=== PATIENT | male | born 1975 | race Hispanic/Latino ===

== ENCOUNTER 2018-09-18 08:13 | Emergency (ER) | payer OTHER ==
[2018-09-18 08:38] VITALS: BP 127/87
[2018-09-18] MEDS ORDERED: XYLOCAINE 1% MPF 5 mL INFILTRATI ONE (09:48)
--- NOTE | 2018-09-18 09:51 | Emergency Department Report ---
HPI - General Chief Complaint: Extremity Problem,Nontraumatic Time Seen by Provider: 09/18/18 09:20 - HPI HPI: 42 yo C M presents to the ED with the complaint of a painful, swollen lesion to the right upper thigh / buttock for the past 2 days. He thinks he may have been bit or stung by something but unsure what. He has used some type of salve without much relief. Otherwise denies pmhx. No fever. No PCP. ED Past Medical Hx - Social History Smoking Status: Former Smoker Substance Use Type: None - Medications Home Medications: Home Medications Medication Instructions Recorded Confirmed Last Taken Type Sulfamethoxazole/Trimethoprim 1 each PO BID #14 tablet 09/18/18 Unknown Rx [Bactrim DS TAB] ED Review of Systems ROS: Stated complaint: R THIGH PAIN/SWOLLEN Other details as noted in HPI Comment: All other systems reviewed and negative Constitutional: denies: chills, fever Musculoskeletal: myalgia. denies: arthralgia Skin: lesions. denies: pruritus Physical Exam - Physical Exam Vital Signs: Vital Signs 09/18/18 08:36 Temperature 98.5 F Pulse Rate 103 H Respiratory 16 Rate Blood Pressure 127/87 Physical Exam: GENERAL: The patient is well-developed well-nourished. HENT: Normocephalic. Atraumatic. Patient has moist mucous membranes. EYES: Extraocular motions are intact. NECK: Supple. Trachea is midline. ABDOMEN: There is no abdominal distention. SKIN: There is a moderate sized fluctuant abscess to the right proximal posterior thigh, just under the buttock. It is about the size of a golf ball. No current bleeding, weeping or drainage. NEURO: The patient is awake, alert, and oriented. The patient is cooperative. The patient has no focal neurologic deficits. The patient has normal speech. MUSCULOSKELETAL: Tenderness to palpation to the right posterior proximal thigh with the patient has an abscess. There is no limitation range of motion. ED Course Vital Signs 09/18/18 08:36 Temperature 98.5 F Pulse Rate 103 H Respiratory 16 Rate Blood Pressure 127/87 - I & D Right Posterior Proximal Thigh Type of Procedure: Simple Site: right posterior proximal thigh, just below the buttock. Blade Size: 11 I & D Procedure: betadine prep, sterile drapes applied, sterile dressing applied, gauze wick placed Progress: The area was cleaned with a Betadine solution. About 3 mL of 1% lidocaine without epinephrine was used to attempt local anesthesia. After this, a 1 cm incision was made with an 11 blade scalpel. Forceps were used to break up loculations. There was a return/removal of about 5 mL of purulent discharge. The area was then packed with iodoform gauze and everything was cleaned and covered with sterile gauze. No obvious complications from this procedure. ED Medical Decision Making - Medical Decision Making Patient presents with a golf ball sized abscess to the right proximal, posterior thigh, just below the buttock. An incision and drainage was performed as per the procedure section. The area was packed with iodoform gauze. Vital signs stable. Afebrile. He will follow up in 2 days for removal of the gauze. He has been given a prescription for some antibiotics. He'll return to the ER with any worsening of his symptoms or any acute distress. - Differential Diagnosis abscess, cyst, cellulitis, dermatitis Critical Care Time: No Critical care attestation.: If time is entered above; I have spent that time in minutes in the direct care of this critically ill patient, excluding procedure time. ED Disposition Clinical Impression: Abscess of right leg Disposition: DC-01 TO HOME OR SELFCARE Is pt being admited?: No Condition: Stable Instructions: Abscess Incision and Drainage (ED), Abscess (ED) Additional Instructions: Please return to see a health care provider in 2 days for removal of the packing. Take the antibiotics as prescribed. Return to the emergency Department with any worsening of your symptoms or any acute distress. Prescriptions: Sulfamethoxazole/Trimethoprim [Bactrim DS TAB] 1 each PO BID #14 tablet Referrals: SAULO MITCHELL MD [Staff Physician] - 2-3 Days [facility] [Outside] - 2-3 Days Forms: Work/School Release Form(ED) Time of Disposition: 10:27
== END 2018-09-18 10:50 | disposition home or self-care (01) ==
LOC: ED 08:13
DX: L02.415 Cutaneous abscess of right lower limb (principal); Z87.891 Personal history of nicotine dependence

== ENCOUNTER 2018-09-20 10:22 | Emergency (ER) | payer OTHER ==
[2018-09-20 10:58] VITALS: BP 116/81
--- NOTE | 2018-09-20 11:32 | Emergency Department Report ---
- General Chief Complaint: Laceration/Recheck/Suture Stated Complaint: PACKAGE REMOVAL Time Seen by Provider: 09/20/18 11:08 Source: patient Mode of arrival: Ambulatory Limitations: No Limitations - History of Present Illness Initial Comments: She is a 42-year-old male who is here for wound recheck. Patient had a I and D of the abscess of the right hip 2 days ago. Patient states he is continued to have some pain but pain is definitely not worsening. Patient is taking antibiotics. Associated Symptoms: pain. denies: loss of feeling/numbness, suspect foreign body present, unable to move injured part, nausea/vomiting, fever - Related Data Previous Rx's Medication Instructions Recorded Last Taken Type Ibuprofen [Motrin 800 MG tab] 800 mg PO Q8HR PRN #10 tablet 09/20/18 Unknown Rx Sulfamethoxazole/Trimethoprim 1 each PO BID #6 tablet 09/20/18 Unknown Rx [Bactrim DS TAB] Allergies Allergy/AdvReac Type Severity Reaction Status Date / Time No Known Allergies Allergy Unverified 09/20/18 10:58 ED Review of Systems ROS: Stated complaint: PACKAGE REMOVAL Other details as noted in HPI Comment: All other systems reviewed and negative ED Past Medical Hx - Past Medical History Previous Medical History?: No - Surgical History Past Surgical History?: No - Social History Smoking Status: Unknown if ever smoked Substance Use Type: None - Medications Home Medications: Home Medications Medication Instructions Recorded Confirmed Last Taken Type Ibuprofen [Motrin 800 MG tab] 800 mg PO Q8HR PRN #10 tablet 09/20/18 Unknown Rx Sulfamethoxazole/Trimethoprim 1 each PO BID #6 tablet 09/20/18 Unknown Rx [Bactrim DS TAB] ED Physical Exam - General Limitations: No Limitations General appearance: alert, in no apparent distress - Head Head exam: Present: atraumatic, normocephalic - Eye Eye exam: Present: normal appearance - ENT ENT exam: Present: mucous membranes moist - Neck Neck exam: Present: normal inspection - Respiratory Respiratory exam: Absent: respiratory distress - Cardiovascular Cardiovascular Exam: Present: regular rate, normal rhythm - Rectal Rectal exam: Present: deferred - Extremities Exam Extremities exam: Present: normal inspection - Back Exam Back exam: Present: normal inspection - Neurological Exam Neurological exam: Present: alert, oriented X3 - Psychiatric Psychiatric exam: Present: normal affect, normal mood - Skin Skin exam: Present: warm, dry, intact, normal color, other (patient with erythema to the right hip with some mild skin induration. Iodoform gauze is present packing the wound. There is some dried blood on the bandage.). Absent: rash ED Course Vital Signs 09/20/18 10:57 Temperature 97.9 F Pulse Rate 71 Respiratory 18 Rate Blood Pressure 116/81 O2 Sat by Pulse 98 Oximetry ED Medical Decision Making - Medical Decision Making The iodoform gauze was removed and there is no further purulent drainage however he did have some clotted blood within the wound indicative of a small postoperative hematoma. The wound is open and there's no need for repacking at this time. Patient to continue with the antibiotics. An additional 3 days of antibiotics bring his total to 10 days be given. Critical care attestation.: If time is entered above; I have spent that time in minutes in the direct care of this critically ill patient, excluding procedure time. ED Disposition Clinical Impression: Abscess of right leg, Hematoma Disposition: DC-01 TO HOME OR SELFCARE Is pt being admited?: No Does the pt Need Aspirin: No Condition: Stable Instructions: Cellulitis (ED) Prescriptions: Sulfamethoxazole/Trimethoprim [Bactrim DS TAB] 1 each PO BID #6 tablet Time of Disposition: 11:32
== END 2018-09-20 11:51 | disposition home or self-care (01) ==
LOC: ED 10:22
DX: L02.415 Cutaneous abscess of right lower limb (principal); Z79.899 Other long term (current) drug therapy

== ENCOUNTER 2020-08-16 08:07 | Emergency (ER) | payer OTHER ==
[2020-08-16 08:26] VITALS: BP 156/108
[2020-08-16] MEDS ORDERED: KETOROLAC 60 MG/2 ML INJ IM ONE (11:34)
[2020-08-16] MEDS ORDERED: dexAMETHasone 4 MG/ML VIAL IM STA (11:34)
--- NOTE | 2020-08-16 11:36 | Emergency Department Report ---
ED General Adult HPI - General Chief complaint: Extremity Problem,Nontraumatic Stated complaint: RT ANKLE INJURY Time Seen by Provider: 08/16/20 09:48 Source: patient Mode of arrival: Ambulatory Limitations: No Limitations - History of Present Illness Initial comments: 44-year-old male patient presents with complaints of sudden onset of right ankle pain and swelling starting yesterday. He denies any injury and rates his pain as a 10/10 in severity. Pain worsens with ambulation and movement per patient. He admits to a history of gout, however states he has only ever affected his great toe. He also denies any fever/chills/sweats, limited range of motion, or history of cancer. -: Sudden - Related Data Previous Rx's Medication Instructions Recorded Last Taken Type Ibuprofen [Motrin 800 MG tab] 800 mg PO Q8HR PRN #10 tablet 09/20/18 Unknown Rx Sulfamethoxazole/Trimethoprim 1 each PO BID #6 tablet 09/20/18 Unknown Rx [Bactrim DS TAB] Indomethacin 50 mg PO Q8H PRN #21 capsule 08/16/20 Unknown Rx Allergies Allergy/AdvReac Type Severity Reaction Status Date / Time No Known Allergies Allergy Verified 07/22/19 09:51 ED Review of Systems ROS: Stated complaint: RT ANKLE INJURY Other details as noted in HPI Constitutional: denies: chills, diaphoresis, fever, malaise Musculoskeletal: joint swelling, arthralgia Skin: denies: change in color Neurological: abnormal gait (Secondary to pain). denies: numbness, paresthesias ED Past Medical Hx - Past Medical History Previous Medical History?: Yes Hx Hypertension: Yes - Surgical History Past Surgical History?: Yes Additional Surgical History: right wrist surgery with pins - Social History Smoking Status: Current Every Day Smoker - Medications Home Medications: Home Medications Medication Instructions Recorded Confirmed Last Taken Type Ibuprofen [Motrin 800 MG tab] 800 mg PO Q8HR PRN #10 tablet 09/20/18 Unknown Rx Sulfamethoxazole/Trimethoprim 1 each PO BID #6 tablet 09/20/18 Unknown Rx [Bactrim DS TAB] Indomethacin 50 mg PO Q8H PRN #21 capsule 08/16/20 Unknown Rx ED Physical Exam - General Limitations: No Limitations - Head Head exam: Present: atraumatic, normocephalic - Eye Eye exam: Present: normal appearance - Respiratory Respiratory exam: Absent: respiratory distress - Cardiovascular Cardiovascular Exam: Present: regular rate - Expanded Lower Extremity Exam Right Ankle exam: Present: full ROM, tenderness (Lateral ankle), swelling. Absent: ecchymosis, deformity, erythema Foot/Toe exam: Present: normal inspection, full ROM. Absent: tenderness Neuro vascular tendon exam: Absent: pulse deficit, sensory deficit Gait: Positive: antalgic (Patient ambulating with walking cane) - Neurological Exam Neurological exam: Present: alert, oriented X3 - Psychiatric Psychiatric exam: Present: normal affect, normal mood - Skin Skin exam: Present: warm, dry, intact, normal color. Absent: rash ED Course Vital Signs 08/16/20 08:24 Temperature 98.6 F Pulse Rate 104 H Respiratory 18 Rate Blood Pressure 156/108 O2 Sat by Pulse 99 Oximetry ED Medical Decision Making - Radiology Data Radiology results: report reviewed Fluoro Time In Minutes: Right ankle-3 views INDICATION: pain/swelling, no injury, hx of gout. COMPARISON: None. IMPRESSION: No acute osseous abnormality. Mild generalized soft tissue swelling about the ankle. Normal alignment. No significant DJD. - Medical Decision Making 44-year-old male patient presents with complaints of sudden onset of right ankle pain and swelling starting yesterday. He denies any injury and rates his pain as a 10/10 in severity. Pain worsens with ambulation and movement per patient. He admits to a history of gout, however states he has only ever affected his great toe. He also denies any fever/chills/sweats, limited range of motion, or history of cancer. X-rays negative for any acute bony abnormalities, however shows arthritic changes and soft tissue swelling. Will treat for gout flare of the ankle with indomethacin. Decadron and Toradol given here in ED. heart rate after pain control noted to be 93 bpm. Recommend follow-up with primary care doctor in 3 days. Patient blood pressure noted to be elevated at 156/108. He does have history of hypertension and states he has not taken his blood pressure medications today. He is otherwise well-appearing and stable for discharge home. Strict return precautions were discussed in detail with patient who verbalizes understanding. Critical care attestation.: If time is entered above; I have spent that time in minutes in the direct care of this critically ill patient, excluding procedure time. ED Disposition Clinical Impression: Right ankle pain Disposition: DC-01 TO HOME OR SELFCARE Is pt being admited?: No Condition: Stable Instructions: Ankle Pain Prescriptions: Indomethacin 50 mg PO Q8H PRN #21 capsule PRN Reason: pain Referrals: [facility] [Provider Group] - 3-5 Days
--- NOTE | 2020-08-16 12:31 | XRay Report ---
Right ankle-3 views INDICATION: pain/swelling, no injury, hx of gout. COMPARISON: None. IMPRESSION: No acute osseous abnormality. Mild generalized soft tissue swelling about the ankle. N ormal alignment. No significant DJD. Signer Name: Brian Sherwood MD Signed: 08/16/2020 12:26 PM Workstation Name: [id number]
== END 2020-08-16 13:21 | disposition home or self-care (01) ==
LOC: ED 08:07
DX: M25.571 Pain in right ankle and joints of right foot (principal); M79.89 Other specified soft tissue disorders; I10 Essential (primary) hypertension; F17.200 Nicotine dependence, unspecified, uncomplicated; Z98.890 Other specified postprocedural states; Z79.1 Long term (current) use of non-steroidal anti-inflammatories (NSAID); Z79.899 Other long term (current) drug therapy
CPT/HCPCS: 73610; 96372; 99283; J1100; J1885